=== PATIENT | male | born 1960 | race Caucasian/White ===

== ENCOUNTER 2025-06-24 13:27 | Emergency (ER) | payer BC, SELFPAY ==
[2025-06-24 13:40] VITALS: BP 151/90
[2025-06-24 13:58] LABS: Hematocrit 39.2 % (39.0-52.0); Hemoglobin 13.4 g/dL (13.0-18.0); Mean Corp Hgb Conc. 34.2 g/dL (33.0-37.0); Mean Corpuscular Volume 85.8 fL (80.0-94.0); Nucleated Red Blood Cells % 0 % (-); Platelet Count 276 10^3/uL (130-400); Red Cell Dist. Width 12.6 % (11.5-14.5)
[2025-06-24 14:14] LABS: ALT (SGPT) 24 U/L (0-50); AST (SGOT) 28 U/L (17-59); Albumin 4.2 g/dl (3.5-5.0); Alkaline Phosphatase 78 U/L (38-126); Blood Urea Nitrogen 16 mg/dl (9-20); Calcium 9.4 mg/dl (8.4-10.2); Carbon Dioxide 24 mmol/L (22-30); Chloride 110 mmol/L (98-107); Glucose 127 mg/dl (70-99); Potassium 4.5 mmol/L (3.5-5.1); Sodium 140 mmol/L (135-145); Total Protein 7.1 g/dl (6.3-8.2); eGFR > 60.00
[2025-06-24 16:29] VITALS: BMI 37.5
[2025-06-24 16:32] VITALS: BP 151/92
[2025-06-24 17:00] VITALS: BP 144/91
--- NOTE | 2025-06-24 17:00 | ED.GENMED ---
History of Present Illness
General
Chief Complaint: Numbness
Source: patient
Exam Limitations: none
Time Seen by Provider: 06/24/25 16:31
History of Present Illness
History of Present Illness:
65-year-old male presents complaining of onset of left facial numbness that started yesterday around noon. It is associate with some pain behind his ear and the numbness and dysfunction of the left side of the face progressed since then. He states
that his eye builds up with tears and his vision gets blurry as a result of this but when he wipes to tears away his vision is normal. He denies double vision. No dysfunction of the arms or legs. Denies any known rash. No fevers or tick bites.
No chest pain or shortness of breath. No other complaints at this time
Phy Exam
Physical Exam
Physical Exam:
General: Well-appearing male no acute respiratory distress
HEENT normal cephalic atraumatic pupils equal round reactive to light extraocular's are intact
Neurologic exam: Alert and oriented normal gait conversing appropriately. There is a left facial droop noted. Patient unable to wrinkle left side of forehead or close the left eye. Good strength to the upper and lower extremities no dysarthria or
aphasia
Skin is warm no obvious rash
Course
Orders/Labs/Results
Orders:
Orders
06/24/25 13:51
Complete Blood Count/With Diff Urgent
Comprehensive Metabolic Panel Urgent
Lyme Progressive Urgent
06/24/25 16:57
Prednisone [Deltasone] 60 mg PO NOW STA
Valacyclovir HCl [Valtrex] 1,000 mg PO NOW STA
Abnormal Lab Results
06/24/25
13:51
RBC 4.57 L 10^6/uL
(4.70-6.10)
Lymphocytes % 19.7 L %
(20.5-51.1)
Chloride 110 H mmol/L
(98-107)
Glucose 127 H mg/dl
(70-99)
06/24/25 13:51
06/24/25 13:51
Vital Signs
Initial and Last Documented VS:
Initial Vital Signs
Temp Pulse Resp BP Pulse Ox
98.7 F 87 15 151/90 97
06/24/25 13:40 06/24/25 13:40 06/24/25 13:40 06/24/25 13:40 06/24/25 13:40
Last Documented Vital Signs
Temp Pulse Resp BP Pulse Ox
98.3 F 73 22 151/92 98
06/24/25 16:32 06/24/25 16:45 06/24/25 16:45 06/24/25 16:32 06/24/25 16:45
MDM/Problems Addressed
Differential Diagnosis Includes:
Patient with left facial numbness and paralysis. Exam most consistent with Luis's palsy. Do not suspect stroke given involvement of the forehead. No other unilateral deficit to suggest otherwise. Lyme test has been added but no rash to suggest
shingles. Will start on prednisone and Valtrex. CAT scan initially ordered through triage however I think this is a low yield study in the setting of Luis's palsy. Do not suspect bleeding in the brain given lack of headache.
*Pulse Oximetry
SaO2: 98
Oxygen Mode of Delivery: Room air
Patient hypoxic: no
*Critical Care Note
Total Time (30-74mins, 75-104mins- exclusive of procedures): Not Applicable
ED Attending Note
-
Portions of this chart may have been created with voice recognition software.� Occasional wrong word or��sound alike� substitutions may have occurred due to the inherent limitations of voice recognition software.
Discharge Plan
Departure
Patient Disposition: Home (Routine Discharge)
Date of Disposition: 06/24/25
Time of Disposition: 17:03
Patient with high blood pressure during this ER visit?: No
Discharge Problem:
Luis's palsy
Instructions: Luis's Palsy (DC)
Prescriptions:
New
valacyclovir [Valtrex] 1 gram tablet
1,000 mg PO TID Qty: 30 0RF
prednisone 20 mg tablet
60 mg PO DAILY 5 Days Qty: 15 0RF
Referrals:
Patrick Babin MD [Family Provider, [facility]]
Activity Restrictions/Additional Instructions:
As discussed, your exam is consistent with Luis's palsy. Take antiviral medicine and prednisone as directed. You may consider using rewetting drops to keep the eye lubricated. You should receive a call if your Lyme test is positive. Please
return here for any worsening
Interventions
Interventions:
*Risk Screen - Suicide Last Done: 06/24/25 16:28
*General Assessment Last Done: 06/24/25 16:28
*Neglect/Abuse Screening Last Done: 06/24/25 16:28
*ED- Fall Risk Assessment Last Done: 06/24/25 16:28
*ED COVID-19 Vaccine History Last Done: 06/24/25 16:28
ED- Neurological Assessment Last Done: 06/24/25 16:34
Discharge Date and Time
Print Language: YAKUT
[2025-06-24] MEDS: VALTREX 1000 MG PO (17:10)
[2025-06-24] MEDS: DELTASONE 60 MG PO (17:11)
== END 2025-06-24 17:18 | disposition home or self-care (01) ==
LOC: EMR 13:27
PROVIDERS: Emergency Medicine; EMERGENCY PHYSICIAN Emergency Medicine; FAMILY PHYSICIAN Family Medicine
DX: G51.0 Bell's palsy (principal)
CPT/HCPCS: 99283; 80053; 85025; 86618